=== PATIENT | female | born 1990 | race Caucasian/White ===

== ENCOUNTER 2018-08-28 01:14 | Emergency (ER) | payer OTHER ==
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
[2018-08-28] MEDS ORDERED: ULIPRISTAL ACETATE 30 MG TAB PO ONE (02:34)
[2018-08-28 05:10] VITALS: BP 108/66
== END 2018-08-28 04:50 | disposition home or self-care (01) ==
LOC: EEVIPCON 01:14
DX: T76.21XA Adult sexual abuse, suspected, initial encounter (principal); F10.99 Alcohol use, unspecified with unspecified alcohol-induced disorder; F41.8 Other specified anxiety disorders; G89.29 Other chronic pain